=== PATIENT | female | born 1975 | race African-American/Black ===

== ENCOUNTER 2018-05-03 02:58 | Emergency (ER) | payer MEDICAID ==
[~2018-05-03] VITALS: Ht 162.6 cm; Wt 68.0 kg
[2018-05-03] MEDS ORDERED: ONDANSETRON HCL 4MG/2ML INJ IV STA (04:56)
[2018-05-03 05:20] LABS: BASOPHILS % 0.5 % (0.0-2.0); EOSINOPHILS % 4.3 % (0.0-5.0); HEMATOCRIT. 36.8 % (36.0-48.0); HEMOGLOBIN. 11.9 g/dL (12.0-16.0); LYMPHOCYTES % 24.4 % (20.0-50.0); MEAN CORPUSCULAR HEMOGLOBIN 27.3 pg (28.0-32.0); MEAN CORPUSCULAR VOLUME 84.6 fL (81.0-99.0); MEAN PLATELET VOLUME 7.5 fl (7.4-10.4); MONOCYTES % 7.9 % (2.0-8.0); NEUTROPHILS % 62.9 % (40.0-76.0); PLATELET 302 x1000/uL (130-400); RED BLOOD CELL COUNT 4.35 mill/uL (4.2-5.4)
[2018-05-03 05:27] LABS: CHLORIDE 108 mEq/L (98-107)
[2018-05-03 07:35] VITALS: BP 107/69
== END 2018-05-03 07:43 | disposition home or self-care (01) ==
LOC: ER 02:58
DX: N20.0 Calculus of kidney (principal); L03.111 Cellulitis of right axilla; R19.7 Diarrhea, unspecified; F17.210 Nicotine dependence, cigarettes, uncomplicated; F12.90 Cannabis use, unspecified, uncomplicated
CPT/HCPCS: 36415; 74176; 80053; 81025; 83690; 85025; 96374; 99285; J2405

== ENCOUNTER 2018-10-01 03:17 | Emergency (ER) | payer MEDICAID ==
[~2018-10-01] VITALS: Ht 162.6 cm; Wt 73.0 kg
[2018-10-01] MEDS ORDERED: IBUPROFEN 800MG TABLET PO ONE (06:30)
[2018-10-01 06:57] VITALS: BP 110/73
== END 2018-10-01 06:57 | disposition home or self-care (01) ==
LOC: ER 03:17
DX: L02.411 Cutaneous abscess of right axilla (principal); H61.22 Impacted cerumen, left ear; F17.200 Nicotine dependence, unspecified, uncomplicated; F12.10 Cannabis abuse, uncomplicated; Z98.890 Other specified postprocedural states
CPT/HCPCS: 99283

== ENCOUNTER 2019-04-10 08:13 | Emergency (ER) | payer MEDICAID ==
[~2019-04-10] VITALS: Ht 162.6 cm; Wt 77.0 kg
[2019-04-10] MEDS ORDERED: ONDANSETRON 4MG ODT PO ONE (10:45)
[2019-04-10] MEDS ORDERED: MORPHINE SULFATE 10 MG/ML CPJ IM ONE (10:45)
[2019-04-10 12:16] VITALS: BP 146/93
== END 2019-04-10 12:26 | disposition home or self-care (01) ==
LOC: ER 08:13
DX: L02.411 Cutaneous abscess of right axilla (principal); F12.10 Cannabis abuse, uncomplicated
CPT/HCPCS: 10060; 96372; 99283; J2270; Q0162

== ENCOUNTER 2019-04-12 15:51 | Emergency (ER) | payer MEDICAID ==
[~2019-04-12] VITALS: Ht 162.6 cm; Wt 65.0 kg
[2019-04-12 17:21] VITALS: BP 116/78
== END 2019-04-12 17:22 | disposition home or self-care (01) ==
LOC: ER 15:51
DX: L02.411 Cutaneous abscess of right axilla (principal); F12.10 Cannabis abuse, uncomplicated; F17.200 Nicotine dependence, unspecified, uncomplicated; Z98.890 Other specified postprocedural states
CPT/HCPCS: 81025; 99283; Z7610

== ENCOUNTER 2019-04-14 11:05 | Emergency (ER) | payer MEDICAID ==
[~2019-04-14] VITALS: Ht 162.6 cm; Wt 68.0 kg
[2019-04-14] MEDS ORDERED: SODIUM CHLORIDE 0.9% 1,000 ML IV ONE (11:29)
[2019-04-14] MEDS ORDERED: ADENOSINE 3 MG/ML 2ML VIAL IV ONE ×2 (11:30→11:31)
[2019-04-14 12:27] LABS: BASOPHILS % 0.8 % (0.0-2.0); HEMATOCRIT. 43.6 % (36.0-48.0); HEMOGLOBIN. 14.1 g/dL (12.0-16.0); LYMPHOCYTES % 49.4 % (20.0-50.0); MEAN CORPUSCULAR HEMOGLOBIN 26.8 pg (28.0-32.0); MEAN CORPUSCULAR VOLUME 83.2 fL (81.0-99.0); MONOCYTES % 5.7 % (2.0-8.0); NEUTROPHILS % 40.1 % (40.0-76.0); PLATELET 427 x1000/uL (130-400); RED BLOOD CELL COUNT 5.24 mill/uL (4.2-5.4); RED CELL DISTRIBUTION WIDTH 14.2 % (11.6-14.6)
[2019-04-14 12:28] LABS: CHLORIDE 109 mEq/L (98-107)
[2019-04-14 13:27] VITALS: BP 121/71
== END 2019-04-14 13:29 | disposition home or self-care (01) ==
LOC: ER 11:05
DX: I47.1 Supraventricular tachycardia (principal); F12.10 Cannabis abuse, uncomplicated; F17.210 Nicotine dependence, cigarettes, uncomplicated; I24.9 Acute ischemic heart disease, unspecified; Z90.5 Acquired absence of kidney; Z98.890 Other specified postprocedural states
CPT/HCPCS: 36415; 80053; 84484; 85025; 93005; 96361; 96374; 99284; J0153; J7030

== ENCOUNTER 2019-06-28 20:09 | Emergency (ER) | payer MEDICAID ==
[~2019-06-28] VITALS: Ht 162.6 cm; Wt 69.0 kg
[2019-06-28 21:56] VITALS: BP 139/78
[2019-06-28] MEDS ORDERED: DIAZEPAM 5 MG TABLET PO ONE (22:45)
[2019-06-28] MEDS ORDERED: KETOROLAC 60MG/2ML VIAL IM ONE (22:45)
== END 2019-06-28 23:51 | disposition home or self-care (01) ==
LOC: ER 20:09
DX: G44.209 Tension-type headache, unspecified, not intractable (principal); F12.10 Cannabis abuse, uncomplicated; F17.200 Nicotine dependence, unspecified, uncomplicated; Z98.890 Other specified postprocedural states; V49.88XA Car occupant (driver) (passenger) injured in other specified transport accidents, initial encounter; Y93.89 Activity, other specified; Y92.89 Other specified places as the place of occurrence of the external cause; Y99.8 Other external cause status
CPT/HCPCS: 96372; 99283; J1885

== ENCOUNTER 2019-08-16 00:12 | Emergency (ER) | payer MEDICAID ==
[~2019-08-16] VITALS: Ht 162.6 cm; Wt 70.0 kg
[2019-08-16 03:24] LABS: BASOPHILS % 0.7 % (0.0-2.0); EOSINOPHILS % 5.4 % (0.0-5.0); HEMATOCRIT. 35.1 % (36.0-48.0); HEMOGLOBIN. 11.5 g/dL (12.0-16.0); LYMPHOCYTES % 36.6 % (20.0-50.0); MEAN CORPUSCULAR VOLUME 82.1 fL (81.0-99.0); MEAN PLATELET VOLUME 7.9 fl (7.4-10.4); MONOCYTES % 9.8 % (2.0-8.0); NEUTROPHILS % 47.5 % (40.0-76.0); PLATELET 304 x1000/uL (130-400); RED BLOOD CELL COUNT 4.27 mill/uL (4.2-5.4); RED CELL DISTRIBUTION WIDTH 15.3 % (11.6-14.6)
[2019-08-16 03:40] LABS: CHLORIDE 110 mEq/L (98-107)
[2019-08-16 04:51] VITALS: BP 114/66
== END 2019-08-16 05:09 | disposition left against medical advice (07) ==
LOC: ER 00:12
DX: R00.2 Palpitations (principal); F17.200 Nicotine dependence, unspecified, uncomplicated; F12.10 Cannabis abuse, uncomplicated
CPT/HCPCS: 36415; 80048; 84484; 85025; 93005; 99284

== ENCOUNTER 2020-05-23 09:10 | Emergency (ER) | payer MEDICAID ==
[~2020-05-23] VITALS: Ht 162.6 cm; Wt 70.0 kg
[2020-05-23 11:08] LABS: BASOPHILS % 0.5 % (0.0-2.0); EOSINOPHILS % 2.6 % (0.0-5.0); HEMATOCRIT. 37.3 % (36.0-48.0); HEMOGLOBIN. 12.2 g/dL (12.0-16.0); MEAN CORPUSCULAR HEMOGLOBIN 26.8 pg (28.0-32.0); MEAN CORPUSCULAR VOLUME 81.8 fL (81.0-99.0); MEAN PLATELET VOLUME 7.4 fl (7.4-10.4); MONOCYTES % 7.1 % (2.0-8.0); NEUTROPHILS % 63.8 % (40.0-76.0); PLATELET 333 x1000/uL (130-400); RED BLOOD CELL COUNT 4.56 mill/uL (4.2-5.4); RED CELL DISTRIBUTION WIDTH 14.8 % (11.6-14.6)
[2020-05-23 11:12] LABS: CLARITY URINE CLOUDY (CLEAR); COLOR URINE YELLOW (YELLOW); KETONES URINE NEGATIVE (NEGATIVE); LEUKOCYTE ESTERASE URINE 1+ (NEGATIVE); NITRITE URINE POSITIVE (NEGATIVE); OCCULT BLOOD URINE NEGATIVE (NEGATIVE); PH URINE 8.5 (4.5-8.0); PROTEIN URINE 1+ (NEGATIVE)
[2020-05-23 11:15] LABS: CHLORIDE 109 mEq/L (98-107)
[2020-05-23 11:18] LABS: PROTHROMBIN TIME 10.3 sec (9.6-11.0)
[2020-05-23 11:23] LABS: HCG SCREEN NEGATIVE
[2020-05-23 13:33] VITALS: BP 115/77
[2020-05-23] MEDS ORDERED: IBUPROFEN 400MG TABLET PO ONE (14:30)
[2020-05-23] MEDS ORDERED: CEFAZOLIN SODIUM 1000MG/VIAL IM ONE (14:30)
[2020-05-23] MEDS ORDERED: ACETAMINOPHEN 325MG TABLET PO ONE (14:30)
== END 2020-05-23 15:03 | disposition home or self-care (01) ==
LOC: ER 09:25
DX: N39.0 Urinary tract infection, site not specified (principal); Q10.5 Congenital stenosis and stricture of lacrimal duct; D25.9 Leiomyoma of uterus, unspecified; R10.30 Lower abdominal pain, unspecified; F12.10 Cannabis abuse, uncomplicated; I49.9 Cardiac arrhythmia, unspecified
CPT/HCPCS: 36415; 76700; 76830; 76856; 76857; 80053; 81003; 83690; 84703; 85025; 85610; 87077; 87086; 87186; 93005; 96372; 99285; J0690

== ENCOUNTER 2023-06-06 13:38 | Emergency (ER) | payer OTHER ==
[~2023-06-06] VITALS: Ht 162.6 cm; Wt 75.0 kg
[~2023-06-06 13:38] MED LIST: ASPI-1406 MT; METO100T16 MT
[2023-06-06 13:52] VITALS: BP 108/79; PULSE 134; TEMP 98.7; O2SAT 99
[2023-06-06] MEDS ORDERED: NITROGLYCERIN 0.4MG TABLET SL SL PRN (14:45)
[2023-06-06] MEDS ORDERED: ASPIRIN 81MG TABLET PO ONE (14:45)
== END 2023-06-06 17:18 | disposition left against medical advice (07) ==
LOC: ER 13:38
DX: R07.9 Chest pain, unspecified (principal); R42 Dizziness and giddiness; Z53.21 Procedure and treatment not carried out due to patient leaving prior to being seen by health care provider
CPT/HCPCS: 93005; 99281

== ENCOUNTER 2023-06-06 19:24 | Emergency (ER) | payer OTHER ==
[~2023-06-06] VITALS: Ht 162.6 cm; Wt 73.0 kg
[2023-06-06 19:42] VITALS: TEMP 98.6; O2SAT 98
[2023-06-06 20:08] LABS: HEMATOCRIT. 40.6 % (36.0-48.0); HEMOGLOBIN. 12.8 g/dL (12.0-16.0); MEAN CORPUSCULAR HEMOGLOBIN 26.8 pg (28.0-32.0); MEAN CORPUSCULAR HGB CONC 31.6 g/dL (31.0-37.0); MEAN CORPUSCULAR VOLUME 84.7 fL (81.0-99.0); MEAN PLATELET VOLUME 7.9 fl (7.4-10.4); PLATELET 328 x1000/uL (130-400); RED BLOOD CELL COUNT 4.79 mill/uL (4.2-5.4); RED CELL DISTRIBUTION WIDTH 14.3 % (11.6-14.6); WHITE BLOOD COUNT 6.3 x1000/uL (4.5-11.0)
[2023-06-06 20:10] LABS: DIFFERENTIAL COMMENT 1
[2023-06-06 20:17] LABS: PARTIAL THROMBOPLASTIN TIME 30.3 sec (23.4-31.0); PROTHROMBIN TIME 10.3 sec (9.6-11.0)
[2023-06-06 20:24] LABS: ALANINE AMINOTRANSFERASE 19 IU/L (10-49); ASPARTATE AMINOTRANSFERASE 21 IU/L (<34); BILIRUBIN TOTAL 0.2 mg/dL (0.1-1.0); CALCIUM 9.2 mg/dL (8.7-10.4); CARBON DIOXIDE 27 mEq/L (21-32); CHLORIDE 110 mEq/L (98-107); CREATININE 0.8 mg/dL (0.6-1.0); GLUCOSE 98 mg/dL (70-105); PROTEIN TOTAL 6.9 g/dL (6.0-8.3); SODIUM 144 mEq/L (136-145); UREA NITROGEN BLOOD 16 mg/dL (9-23)
[2023-06-06 20:31] LABS: TROPONIN I HIGH SENSITIVITY < 4 ng/L (3.0-34)
[2023-06-06 20:46] LABS: PLATELET ESTIMATE NORMAL
[2023-06-06 21:08] VITALS: BP 133/65; PULSE 98; RESP 20
== END 2023-06-06 21:25 | disposition home or self-care (01) ==
LOC: ER 19:24
DX: R07.89 Other chest pain (principal); F12.10 Cannabis abuse, uncomplicated
CPT/HCPCS: 36415; 71045; 80053; 83880; 84484; 85025; 93005; 99285

== ENCOUNTER 2023-08-02 11:13 | Emergency (ER) | payer OTHER ==
[~2023-08-02] VITALS: Ht 162.6 cm; Wt 73.0 kg
[2023-08-02 11:34] VITALS: O2SAT 100
[2023-08-02] MEDS ORDERED: IBUPROFEN 600MG TABLET PO ONE (16:30)
[2023-08-02 17:37] VITALS: BP 133/89; PULSE 75; RESP 17; TEMP 98.8
== END 2023-08-02 17:43 | disposition home or self-care (01) ==
LOC: ER 11:13
DX: M79.605 Pain in left leg (principal); I10 Essential (primary) hypertension; I49.9 Cardiac arrhythmia, unspecified; Z98.51 Tubal ligation status
CPT/HCPCS: 73562; 73610; 81025; 99284

== ENCOUNTER 2024-02-25 20:53 | Emergency (ER) | payer OTHER ==
[~2024-02-25] VITALS: Ht 162.6 cm; Wt 84.0 kg
[2024-02-25 20:58] VITALS: O2SAT 100
[2024-02-25] MEDS: ADENOSINE 3 MG/ML 2ML VIAL IV ONE (21:23)
[2024-02-25 23:23] LABS: BASOPHILS % 0.4 % (0.0-2.0); EOSINOPHILS % 6.2 % (0.0-5.0); LYMPHOCYTES % 36.4 % (20.0-50.0); MEAN CORPUSCULAR HEMOGLOBIN 27.2 pg (28.0-32.0); MEAN CORPUSCULAR HGB CONC 31.8 g/dL (31.0-37.0); MEAN CORPUSCULAR VOLUME 85.3 fL (81.0-99.0); MEAN PLATELET VOLUME 7.2 fl (7.4-10.4); MONOCYTES % 9.1 % (2.0-8.0); NEUTROPHILS % 47.9 % (40.0-76.0); PLATELET 213 x1000/uL (130-400); RED BLOOD CELL COUNT 2.93 mill/uL (4.2-5.4); RED CELL DISTRIBUTION WIDTH 14.3 % (11.6-14.6); WHITE BLOOD COUNT 4.4 x1000/uL (4.5-11.0)
[2024-02-25 23:32] LABS: CHLORIDE 112 mEq/L (98-107); POTASSIUM 3.8 mEq/L (3.5-5.1); SODIUM 143 mEq/L (136-145)
[2024-02-25 23:33] LABS: CARBON DIOXIDE 27 mEq/L (21-32)
[2024-02-25 23:34] LABS: CALCIUM 9.5 mg/dL (8.7-10.4)
[2024-02-25 23:38] LABS: CREATININE 0.9 mg/dL (0.6-1.0); GLUCOSE 89 mg/dL (70-105)
[2024-02-25 23:39] LABS: UREA NITROGEN BLOOD 11 mg/dL (9-23)
[2024-02-25 23:40] LABS: ALANINE AMINOTRANSFERASE 12 IU/L (10-49); ALBUMIN 4.2 g/dL (3.2-4.8); ASPARTATE AMINOTRANSFERASE 15 IU/L (<34)
[2024-02-25 23:41] LABS: BILIRUBIN TOTAL 0.2 mg/dL (0.1-1.0); PROTEIN TOTAL 6.5 g/dL (6.0-8.3)
[2024-02-25 23:43] LABS: THYROID STIMULATING HORMONE 1.69 uIU/mL (0.55-4.78)
[2024-02-25 23:51] LABS: TROPONIN I HIGH SENSITIVITY < 4 ng/L (3.0-34)
[2024-02-25 23:52] LABS: PROTHROMBIN TIME 11.1 sec (9.6-11.0)
[2024-02-26 01:10] VITALS: BP 138/86; PULSE 72; RESP 22; TEMP 36.94740; O2SAT 100
[2024-02-26 01:54] LABS: TROPONIN I HIGH SENSITIVITY < 4 ng/L (3.0-34)
== END 2024-02-26 02:20 | disposition home or self-care (01) ==
LOC: ER 20:53
DX: I47.10 Supraventricular tachycardia, unspecified (principal); D64.9 Anemia, unspecified; I10 Essential (primary) hypertension
CPT/HCPCS: 80053; 84443; 85025; 85610; 84484 ×2; 36415; 71045; 93005; 96374; 99285; J0153; Z7610